=== PATIENT | female | born 1970 | race Caucasian/White ===

== ENCOUNTER 2017-01-06 23:51 | Emergency (ER) | payer OTHER ==
--- NOTE | ~2017-01-06 | EKG ---
PATIENT: HOLA SWANSON UNIT #: [id number] Ventricular Rate: 67 BPM Atrial Rate: 67 BPM P-R Interval: 196 ms QRS Duration: 86 ms Q-T Interval: 414 ms QTC Calculation(Bezet): 437 ms P Dows: 52 degrees Calculated R Dows: 45 degrees Calculated T Dows: 61 degrees Diagnosis Line: Normal sinus rhythm Diagnosis Line: Normal ECG Diagnosis Line: When compared with ECG of 15-FEB-2016 00:23, Diagnosis Line: No significant change was found Diagnosis Line: Confirmed by ISAIAS BIRMINGHAM MD ([id number]) on Diagnosis Line: 01/09/2017 11:57:31 PM INTERPRETING MD: VINNIE MUNGUIA
--- NOTE | ~2017-01-06 | CR63 ---
[facility] A Service of [facility] & [facility] RADIOLOGY TEXT RESULTS PATIENT: HOLA SWANSON LOCATION: [facility] : 70 UNIT #: [id number] AGE: [address]: Kobe Posey MD SEX: F ORDER DR: [id number] [facility] [address] [place], [place] [address] [id number] MR#: [id number] Acc #: [id number] NAME: HOLA SWANSON : 1970 SEX: F STUDY DATE/TIME: 01/06/2017 2349 UNIT: [facility] ROOM: STUDY DESCRIPTION: CR Chest 2 View Attending Physician: Kobe Posey M.D. Ordering Physician: Kobe Posey M.D. Primary Care Physician: Darryl Chavez M.D. MEDICAL IMAGING REPORT This report is preliminary unless electronic signature is present EXAM Chest x-ray, 01/06 at 2349 hours. INDICATION Shortness of air and chest pain for 3 days. History of hypertension. COMPARISON 02/15/2016 and 06/19/2015 FINDINGS 2 views of the chest were obtained. The lungs are clear. The cardiac and mediastinal contours are normal. There is no pneumothorax. IMPRESSION No active disease and no change from prior. Dictated by... Rober Villa Jr., M.D. THIS IS AN ELECTRONICALLY VERIFIED REPORT Rober Villa Jr., M.D. at 01/07/2017 12:38 PM MOE/mariana TD: 01/07/2017 09:23 JOB #: [id number] MEDICAL IMAGING REPORT COPY
[2017-01-06 23:11] LABS: BASOPHIL% 0.5 % (0-2.5); DIFF IND NO; EOSINOPHIL# 0.4 X10e3 (0-0.7); EOSINOPHIL% 3.4 % (0.0-7.0); HEMATOCRIT 44.5 % (35.0-45.0); LYMPHOCYTE# 3.1 X10e3 (1.0-3.5); LYMPHOCYTE% 29.3 % (17.0-45.0); MEAN CORPUSCULAR HEMOGLOBIN 31.1 PG (28-34); MEAN CORPUSCULAR HGB CONC 33.7 g/dL (30-36); MEAN PLATELET VOLUME 8.8 FL (6.5-11.5); MONOCYTE# 0.5 X10e3 (0-1.0); MONOCYTE% 5.1 % (3.0-12.0); NEUTROPHIL# 6.6 X10e3 (1.5-7.1); NEUTROPHIL% 61.7 % (40-75); PLATELET COUNT 236 X10e3 (140-420); RED BLOOD COUNT 4.84 X10e (3.90-5.30); RED CELL DISTRIBUTION WIDTH 13.2 % (11.0-15.5); WHITE BLOOD COUNT 10.7 X10e3 (4.0-10.5)
[2017-01-06 23:50] LABS: ALBUMIN SERUM 3.9 g/dL (3.5-5.0); ALKALINE PHOSPHATASE 80 U/L (32-92); ALT (SGPT) 21 U/L (10-40); AST (SGOT) 15 U/L (10-42); BILIRUBIN,TOTAL 0.1 mg/dL (0.2-2.0); BLOOD UREA NITROGEN 13 mg/dL (9-23); BUN/CREATININE RATIO 21.66; CALCIUM SERUM 9.1 mg/dL (8.4-10.2); CARBON DIOXIDE 29 mmol/L (22-31); CHLORIDE 102 mmol/L (100-111); CREATININE SERUM 0.6 mg/dL (0.6-1.4); GLOM FILT RATE Estimated ABOVE60 mL/min (>60); GLUCOSE FASTING 103 mg/dL (70-110); POTASSIUM 3.7 mmol/L (3.5-5.1); SODIUM 137 mmol/L (135-145)
[~2017-01-06 23:51] MED LIST: ALBUTEROL17 GM INH; ASPIRIN81 M2 PO; BAYER CHEWABLE81 MG PO; CLARITIN R10 MG REDI PO; CLARITIN10 M2 PO; FLONASE 0.05% N16 G1; GABAPENTIN600 MG PO; IRON325 ( 651 PO; LOFIBRA54 MG PO; METHADONE HCL10 MG PO; METHADOSE10 MG PO; NEURONTIN PO; NEURONTIN600 MG PO; PERCOCET 7.5-31 EACH PO; PHENERGAN25 M1 PO; PRILOSEC PO; PRILOSEC40 MG PO; PROVENTIL0.83 MG/ML; ZOFRAN ODT4 MG PO; ZYRTEC5 MG PO
[2017-01-06 23:53] LABS: BILIRUBIN, DIRECT 0.1 mg/dL (0.0-0.2)
[2017-01-07 00:08] LABS: POC - CKMB 1.2 ng/mL (0.0-7.9); POC - TROPONIN <0.05 ng/mL (<=0.05)
== END 2017-01-07 00:20 | disposition home or self-care (01) ==
LOC: CED 23:51
PROVIDERS: Emergency Medicine
DX: Z53.8 Procedure and treatment not carried out for other reasons (principal)
CPT/HCPCS: 71020; 80048; 80076; 82553; 84484; 85025; 86677; 93005; C9113; J2930

== ENCOUNTER 2017-05-06 15:19 | Emergency (ER) | payer OTHER ==
[2017-05-06 17:56] LABS: BASOPHIL# 0.1 X10e3 (0-0.3); BASOPHIL% 1.1 % (0-2.5); EOSINOPHIL# 0.3 X10e3 (0-0.7); EOSINOPHIL% 2.3 % (0.0-7.0); HEMATOCRIT 48.6 % (35.0-45.0); HEMOGLOBIN 16.1 gm/dL (12.0-16.0); LYMPHOCYTE# 1.1 X10e3 (1.0-3.5); LYMPHOCYTE% 9.5 % (17.0-45.0); MEAN PLATELET VOLUME 9.4 FL (6.5-11.5); MONOCYTE# 1.7 X10e3 (0-1.0); MONOCYTE% 14.1 % (3.0-12.0); NEUTROPHIL# 8.7 X10e3 (1.5-7.1); PLATELET COUNT 198 X10e3 (140-420); RED BLOOD COUNT 5.17 X10e (3.90-5.30); RED CELL DISTRIBUTION WIDTH 13.2 % (11.0-15.5)
[2017-05-06 18:01] LABS: DIFF IND NO
== END 2017-05-06 18:35 | disposition home or self-care (01) ==
LOC: CED 15:19
PROVIDERS: Emergency Medicine
DX: K43.9 Ventral hernia without obstruction or gangrene (principal); F17.200 Nicotine dependence, unspecified, uncomplicated; Z87.440 Personal history of urinary (tract) infections; Z88.0 Allergy status to penicillin; Z88.5 Allergy status to narcotic agent; Z88.8 Allergy status to other drugs, medicaments and biological substances; Z79.82 Long term (current) use of aspirin; Z79.899 Other long term (current) drug therapy
CPT/HCPCS: 36415; 85025; 99284